=== PATIENT | female | born 1995 | race Caucasian/White ===

== ENCOUNTER 2018-11-21 12:55 | Inpatient (IN) | payer OTHER ==
[~2018-11-21] VITALS: Ht 162.6 cm; Wt 72.7 kg
[2018-11-21] MEDS ORDERED: PREN-93 PO (13:23)
[2018-11-21 13:29] VITALS: Ht 162.6 cm; Wt 72.7 kg
[2018-11-21 13:30] VITALS: BP 130/90; RESP 20
[2018-11-21] MEDS: LACTATED RINGER'S 1,000 ML IV SCH ×3 (13:59→21:59)
[2018-11-21] MEDS ORDERED: BUTORPHANOL 2 MG INJ IV PRN (14:00)
[2018-11-21] MEDS ORDERED: OXYTOCIN 30 UNITS/LR 500 ML IV PRN (14:00)
[2018-11-21] MEDS ORDERED: IBUPROFEN 600 MG TAB PO PRN (14:00)
[2018-11-21] MEDS ORDERED: CARBOPROST 250 MCG INJ IM PRN (14:00)
[2018-11-21] MEDS ORDERED: MISOPROSTOL 200 MCG TAB PR PRN (14:00)
[2018-11-21] MEDS ORDERED: AMPICILLIN 2 GM/NS (PMX) 100 ML IV ONE (14:00)
[2018-11-21] MEDS ORDERED: LIDOCAINE 1% (MPF) 30 ML INJ INJ PRN (14:00)
[2018-11-21] MEDS ORDERED: OXYTOCIN 30 UNITS/LR 500 ML IV SCH ×3 (14:00→19:00)
[2018-11-21] MEDS ORDERED: METHYLERGONOVINE 0.2 MG INJ IM PRN (14:00)
[2018-11-21] MEDS: AMPICILLIN 1 GM/NS (PMX) 50 ML IV SCH ×2 (18:22→22:03)
--- NOTE | 2018-11-21 19:54 | HP ---
Date/Time of Note Date/Time of Note DATE: 11/21/18 TIME: 19:43 OB - History Hx of Present Free Text/Dictation 23 years old 2 para 1-0-0-1 with single intrauterine at 40 weeks and 1 day complaining of uterine contractions. She states good movement. She denies nausea, vomiting, shortness of breath, chest pain, headache, visual changes, vaginal bleeding or LOF. Chief Complaint: Uterine contractions Estimated Due Date: November 20, 2018 : 2 Para: 1 Spontaneous : 0 Therapeutic : 0 Care: Good Care Ultrasounds: Normal mid trimester US Obstetrical Complications: None, Gestational Hypertension Medical Complications: None Past Family/Social History * Past Medical, Surgical, Family and Obstetric Histories reviewed from chart. Blood Type: B+ Rubella: immune RPR/VDRL: Negative GBS Status: Positive HBsAG: Negative OB Admission Exam Vital Signs Vital Signs Vital Signs Date Temp Pulse Resp B/P (MAP) Pulse Ox O2 O2 Flow FiO2 Time Delivery Rate 11/21/18 98.0 20 130/90 98 Room Air 13:30 (103) Physical Exam HEENT: WNL Heart: Rhythm Normal Lungs: Clear Abdomen: WNL Extremities: Normal Reflexes: Normal Cervical Dilatation: 2cm Effacement: 50% Station: -2 Membranes: Intact Heart Rate: 130's Accelerations: Accelerations Present Decelerations: No Decelerations Varibility: Moderate Contractions on Admission: < 5 Minutes Apart Intensity: Mild Last 72 hours Lab Results CBC & BMP 11/21/18 13:50 Liver Function Test 11/21/18 13:50 Alanine Aminotransferase (ALT/SGPT) 19 Aspartate Amino Transf (AST/SGOT) 30 OB Assessment/Plan Other plan: 23 years old 2 para 1-0-0-1 with single intrauterine at 40 weeks and 1 day in early labor. She had one elevated blood pressure during observation in triage (130/90). PIH labs performed which were within normal limits. -FHR: No sign of metabolic acidosis- Category I -Continuous EFM, toco -CBC, blood type and screen -Analgesia options with R/B/A discussed in detail with patient -Epidural per patient request -Please see the orders -B+/Rubella: Immune -GBS: Positive, ampicillin ordered Addendum: She received 2 doses of ampicillin. Repeat exam 3/60/-2/cephalic/intact. AROM performed/clear Admission, procedures, expectations, risks and possible complications have been discussed in detail with the patient. Risk of vaginal delivery including but not limited to bleeding, infection, cervical laceration, placental retention, injury to fetus, blood transfusion, blood transfusion related infection, risk of anesthesia, adhesion, cervical laceration, episiotomy/laceration, possible delivery with risk of bleeding, infection, injury to other organs (bowel, bladder, ureter, vessels, nerves), injury to fetus, blood transfusion, blood transfusion related infection, risk of anesthesia, scar and hernia formation, needs for future , removal of uterus or any other indicated surgery discussed with the patient. She expressed understanding and repeats the risks. All of her questions were answered. She signed the informed consent. PHYSICIAN'S VERIFICATION OF INFORMED CONSENT The patient was counseled regarding the procedure, its indications, risks, potential complications and alternatives and any questions were answered. Consent was obtained. PLANNED PROCEDURE/TREATMENT: Vaginal delivery, episiotomy, repair of laceration possible delivery KEMAL HILL November 21, 2018 19:54
--- NOTE | 2018-11-21 20:51 | PREAC ---
Date/Time of Note Date/Time of Note DATE: 11/21/18 TIME: 20:50 Anesthesia Eval and Record Evaluation Time Pre-Procedure Interview DATE: 11/21/18 TIME: 20:50 Age 23 Sex female NPO: 8 hrs Preoperative diagnosis labor pain Planned procedure labor epidural Past Medical History Past Medical History: None Surgery & Anesthesia Issues No known issue Meds Anticoagulation: No Beta Reginald within 24 hr: No Reason Beta Reginald not given: Pt. not on B-Reginald Reported Medications Vit No.124/Iron/FA ( Vitamin Tablet) 1 Each Tablet, 1 EACH PO DAILY, TAB 11/21/18 Current Medications Lactated Ringer's 1,000 ml @ 125 mls/hr Q8H IV Last administered on 11/21/18at 13:59; Admin Dose 125 MLS/HR; Start 11/21/18 at 13:41 Ampicillin 50 ml @ 100 mls/hr Q4H IV Last administered on 11/21/18at 18:22; Admin Dose 100 MLS/HR; Start 11/21/18 at 18:00 Butorphanol Tartrate (Stadol) 2 mg Q2H PRN IV .PAIN SCALE 6-10; Start 11/21/18 at 14:00 Lidocaine (Xylocaine 1% (Mpf)) 30 ml ONCE PRN INJ .EPISIOTOMY; Start 11/21/18 at 14:00 Oxytocin/Lactated Ringer's 500 ml @ 500 mls/hr ONCE POST IV ; Start 11/21/18 at 14:00 Oxytocin/Lactated Ringer's 500 ml @ 125 mls/hr POST IV ; Start 11/21/18 at 14:00 Ibuprofen (Motrin) 600 mg ONCE PRN PO .PAIN 1-5; Start 11/21/18 at 14:00 Oxytocin/Lactated Ringer's 500 ml @ 0 mls/hr ONCE PRN IV .VAGINAL BLEEDING; Start 11/21/18 at 14:00 Methylergonovine Maleate (Methergine) 0.2 mg ONCE PRN IM .VAGINAL BLEEDING; Start 11/21/18 at 14:00 Carboprost Tromethamine (Hemabate) 250 mcg ONCE PRN IM .VAGINAL BLEEDING; Start 11/21/18 at 14:00 Misoprostol (Cytotec) 1,000 mcg ONCE PRN NE .VAGINAL BLEEDING; Start 11/21/18 at 14:00 Oxytocin/Lactated Ringer's 500 ml @ 0 mls/hr Q0M IV Last administered on 11/21/18at 19:06; Admin Dose 1 MLS/HR; Start 11/21/18 at 19:00 Meds reviewed: Yes Allergies Coded Allergies: No Known Allergy (Unverified , 11/21/18) Allergies Reviewed: Yes Labs/Studies Labs Reviewed: Reviewed by anesthesiologist Result Diagram: 11/21/18 1350 11/21/18 1350 Laboratory Tests 11/21/18 13:50 Blood Bank Test 11/21/18 13:50 Blood Type B POSITIVE Rh Immune Globulin Candidate NO test: Positive Pre-procedure Exam Last vitals Vital Signs Date Temp Pulse Resp B/P (MAP) Pulse Ox O2 O2 Flow FiO2 Time Delivery Rate 11/21/18 98.0 20 130/90 98 Room Air 13:30 (103) Airway: Adequate mouth opening, Adequate thyromental dist Mallampati: Mallampati III Teeth: Normal Lung: Normal Heart: Normal ASA Physical Status ASA physical status: 2 Emergency: None Planned Anesthetic Neuraxial: Epidural Planned Pain Management Epidural, Parenteral pain med, Other neuraxial med Pre-operative Attestations Prior to commencing anesthesia and surgery, the patient was re-evaluated, there was verification of: *The patient's identity *The results of appropriate recent lab work and preoperative vital signs *The above evaluation not changing prior to induction *Anesthetic plan, risk benefits, alternative and complications discussed with patient/family; questions answered; patient/family understands, accepts and wishes to proceed. JACLYN TODD MD November 21, 2018 20:51
[2018-11-21] MEDS ORDERED: DIPHENHYDRAMINE 50 MG INJ IV PRN (21:00)
[2018-11-21] MEDS ORDERED: ZOLPIDEM 5 MG TAB PO PRN (21:00)
[2018-11-21] MEDS ORDERED: NALOXONE (0.4 MG/ML) INJ IV PRN (21:00)
[2018-11-21] MEDS ORDERED: ONDANSETRON 4 MG INJ IV PRN (21:00)
[2018-11-21] MEDS ORDERED: FENTAnyl 2MCG/ML-ROPIV 0.2% 100 ML BAG EPI SCH (21:00)
[2018-11-21] MEDS ORDERED: HYDROmorphONE 0.5 MG/0.5 ML SYG IV PRN ×2 (21:00)
[2018-11-21] MEDS ORDERED: KETOROLAC 30 MG INJ IV PRN (21:00)
--- NOTE | 2018-11-22 00:57 | LDN ---
Date/Time of Note Date/Time of Note DATE: 11/22/18 TIME: 00:54 Delivery Summary 23 years old 2 para 1-0-0-1 with single intrauterine at 40 weeks and 2 days delivered a viable male over intact perineum. There was nuchal cord x2 which reduced. Rest of body delivered. Cord clamp and caught after stopping pulsation. Baby given to the nurse. Placenta delivered intact and spontaneously with 3 vessel cord. Patient tolerated procedure well. Time of [id number] Weight 7 pounds 10 ounces 9 at 1 minutes and 9 at 5 minutes EBL 150 mL Weeks of Gestation 40 weeks and 2 days Placenta Delivered: Spontaneously Meconium: none Episiotomy: No Estimated blood loss: 150 Sponge & Needle done & correct: Yes All needle counts correct: Yes Any foreign bodies felt in the: No Delivery Information Sex Infant Sex: male Apgars 1 Minute: 9 5 Minute: 9 10 Minute: 10 Suctioning Nose & mouth suctioned at manuel: Yes Umbilical Cord Umbilical cord with: 3 Vessels Cord presentations: nuchal cord Nuchal cord present X: 2 Cord Blood was obtained: Yes Mother & Baby Disposition Disposition Mom & Baby to Maternity; Good: Yes KEMAL HILL November 22, 2018 00:57
[2018-11-22] MEDS: DEXTROSE 5%-LR 1,000 ML IV SCH ×2 (02:27→10:27)
[2018-11-22] MEDS ORDERED: CARBOPROST 250 MCG INJ IM PRN (02:30)
[2018-11-22] MEDS ORDERED: ZOLPIDEM 5 MG TAB PO PRN (02:30)
[2018-11-22] MEDS ORDERED: BENZOCAINE 20% 56 ML SPRAY TOP PRN (02:30)
[2018-11-22] MEDS ORDERED: DIBUCAINE 1% 30 GM OINT TOP PRN (02:30)
[2018-11-22] MEDS ORDERED: MISOPROSTOL 200 MCG TAB PR PRN (02:30)
[2018-11-22] MEDS ORDERED: OXYCODONE/ASPIRIN (4.88/325) TAB PO PRN (02:30)
[2018-11-22] MEDS ORDERED: OXYTOCIN 30 UNITS/LR 500 ML IV PRN (02:30)
[2018-11-22] MEDS ORDERED: SENNA/DOCUSATE NA (8.6MG/50MG) TAB PO PRN (02:30)
[2018-11-22] MEDS ORDERED: WITCH HAZEL/GLYCERIN PAD PR PRN (02:30)
[2018-11-22] MEDS ORDERED: DIPHENHYDRAMINE 50 MG INJ IV PRN (02:30)
[2018-11-22] MEDS ORDERED: ONDANSETRON 4 MG INJ IV PRN (02:30)
[2018-11-22] MEDS ORDERED: ACETAMINOPHEN 325 MG TAB PO PRN (02:30)
[2018-11-22] MEDS ORDERED: MAGNESIUM HYDROXIDE 30ML CUP PO PRN (02:30)
[2018-11-22] MEDS ORDERED: METHYLERGONOVINE 0.2 MG INJ IM PRN (02:30)
[2018-11-22 02:35] VITALS: BP 133/83; PULSE 80; RESP 20
[2018-11-22] MEDS: LANOLIN HPA 1 PKT TOP PRN (02:47)
[2018-11-22 04:30] VITALS: BP 126/71; PULSE 85; RESP 19
[2018-11-22] MEDS: IBUPROFEN 600 MG TAB PO SCH ×3 (05:43→17:31)
[2018-11-22 08:15] VITALS: BP 108/65; PULSE 85; RESP 19
[2018-11-22] MEDS: LACTATED RINGER'S 1,000 ML IV* SCH ×2 (08:56→10:27)
[2018-11-22 12:00] VITALS: BP 110/68; PULSE 73; RESP 19
[2018-11-22 16:00] VITALS: BP 113/56; PULSE 79; RESP 18
[2018-11-22 20:00] VITALS: BP 127/83; PULSE 80; RESP 18
[2018-11-23] MEDS: IBUPROFEN 600 MG TAB PO SCH ×5 (00:20→23:53)
[2018-11-23 00:37] VITALS: BP 120/74; PULSE 76; RESP 18
--- NOTE | 2018-11-23 02:36 | DELSUM ---
Delivery Summary A-C Datetime Report Generated by CPN: 11/23/2018 02:35 DELIVERY PERSONNEL Felt Checker: Jeannette Esqueda MATERNAL INFORMATION Delivery Anesthesia: Epidural Medications in Delivery: LR 500ML PITOCIN 30 UNITS Delivery QBL (ml): 150 Placenta Cultured: No Maternal Complications: None LABOR SUMMARY EDC: 11/20/2018 00:00 No. Babies in Womb: 1 Attempted: No Labor Anesthesia: None LABOR INFORMATION Reason for Induction: Not Applicable Onset of Labor: 11/21/2018 01:00 Complete Dilatation: 11/22/2018 00:17 Oxytocin: Augmentation Group B Beta Strep: Positive Antibiotics # of Doses: AMPICILLIN X3 Antibiotics Time of Last Dose: 11/21/2018 22:03 Steroids Given: None Reason Steroids Not Administered: Not Applicable MEMBRANES Membranes Rupture Method: Artificial Rupture of Membranes: 11/21/2018 18:45 Length of Rupture (hr): 5.87 Amniotic Fluid Color: Clear Amniotic Fluid Amount: Large Amniotic Fluid Odor: Normal STAGES OF LABOR Stage 1 hr: 23 Stage 1 min: 17 Stage 2 hr: 0 Stage 2 min: 20 Stage 3 hr: 0 Stage 3 min: 3 Total Time in Labor hr: 23 Total Time in Labor min: 40 VAGINAL DELIVERY Episiotomy: None Laceration Extension: N/A Laceration Type: None Laceration Repair: No Initial Vag Sponge Count: 10 Final Vag Sponge Count: 10 Initial Vag Sharps Count: 1 Final Vag Sharps Count: 1 Sponge Count Correct: Yes Sharps Count Correct: Yes BABY A INFORMATION Infant Delivery Date/Time: 11/22/2018 00:37 Method of Delivery: Vaginal Born in Route : No : N/A Forceps: N/A Vacuum Extraction: N/A Shoulder Dystocia : No SHOULDER DYSTOCIA BABY A Delivery Date/Time: 11/22/2018 00:37 PRESENTATION/POSITION BABY A Presentation: Cephalic Cephalic Presentation: Vertex Vertex Position: Left Occipital Posterior Breech Presentation: N/A PLACENTA INFORMATION BABY A Placenta Delivery Time : 11/22/2018 00:40 Placenta Method of Delivery: Spontaneous Placenta Status: Delivered SCORES BABY A Heart Rate 1 min: >100 bpm Resp Effort 1 min: Good Cry Reflex Irritability 1 min: Cough/Sneeze/Pulls Away Muscle Tone 1 min: Active Motion Color 1 min: Body [place], Extremit Blue Resuscitation Effort 1 min: Tactile Stimulation SCORE 1 MIN: 9 Heart Rate 5 min: >100 bpm Resp Effort 5 min: Good Cry Reflex Irritability 5 min: Cough/Sneeze/Pulls Away Muscle Tone 5 min: Active Motion Color 5 min: Body [place], Extremit Blue Resuscitation Effort 5 min: Tactile Stimulation SCORE 5 MIN: 9 INFORMATION BABY A Gestational Age at Delivery: 40.2 Gestational Status: Full Term- 39- 40.6 Weeks Infant Outcome : Liveborn Infant Condition : Stable Sex: Male IDENTIFICATION/MEDS BABY A ID Band Number: [id number] ID Band Location: Right Leg; Left Arm Sensor Applied: Yes Sensor Number: [id number] Sensor Location : Cord Clamp Vitamin K Given : Not Given Erythromycin Given: Not Given WEIGHT/LENGTH BABY A Infant Birthweight (gm): 3450 Infant Weight (lb): 7 Weight (oz): 10 Length (in): 19.50 Infant Length (cm): 49.53 CORD INFORMATION BABY A No. Cord Vessels: 3 Nuchal Cord : Around Neck x1, Loose Cord Blood Taken: Yes Infant Suction: Mouth; Nose ASSESSMENT BABY A Infant Complications: Multiple Variable Decels Physical Findings at Delivery: Within Normal Limits Infant Respirations: Appears Normal Rehab Director/ALS Called : No Care By: ROWDY ROBLEDO RN Transferred To: Nursery
--- NOTE | 2018-11-23 03:05 | PN ---
Date/Time of Note Date/Time of Note DATE: 11/23/18 TIME: 03:00 OB Subjective Subjective Subjective PPD# 1 Patient is doing well. She denies nausea, vomiting, shortness of breath, chest pain, headache. She has been ambulating without difficulty, tolerating regular diet. Pain is well controlled on current medications OB Objective Objective Objective Vital Signs Date Temp Pulse Resp B/P (MAP) Pulse Ox O2 O2 Flow FiO2 Time Delivery Rate 11/23/18 98.0 76 18 120/74 Room Air 00:37 (89) 11/21/18 98 13:30 General: AAO X 3, comfortable, NAD, appropriate mood and affect. ABD: +BS. Soft, non-tender. Uterus 2 cm below umbilicus Flank: No CVA tenderness (B/L) LE: Mild edema. No clubbing, cyanosis, thigh or calf tenderness (B/L). Homans 'sign is negative OB Assessment/Plan Other plan: 23-year old 2 para 2002 s/p normal vaginal delivery at 40 weeks and 2 days. She delivered at 00:37 on 11/22/2018. PPD#1 - AF, VSS - Baby is doing well, at bed side. She is bonding well - Contraception methods with R/B/A/FR discussed - Continue care - Discharge home, if is okay with construction ironworker helper to discharge the baby - Rx and instruction given - Follow up in 2 and 6 weeks at clinic KEMAL HILL November 23, 2018 03:05
[2018-11-23 04:30] VITALS: BP 109/69; PULSE 72; RESP 20
[2018-11-23 08:00] VITALS: BP 116/76; PULSE 63; RESP 19
[2018-11-23 16:04] VITALS: BP 111/75; PULSE 83; RESP 16
[2018-11-23] MEDS: LANOLIN HPA 1 PKT TOP PRN (18:46)
[2018-11-23 20:15] VITALS: BP 131/86; PULSE 86; RESP 19
[2018-11-24 04:30] VITALS: BP 122/66; PULSE 89; RESP 18
[2018-11-24] MEDS: IBUPROFEN 600 MG TAB PO SCH ×2 (05:43→12:05)
[2018-11-24 08:15] VITALS: BP 105/60; PULSE 66; RESP 20
[2018-11-24] MEDS ORDERED: DIPHTH/TET/ACEL PERTUSS (ADULT) 0.5 ML VIAL IM* ONE (09:00)
[2018-11-24] MEDS ORDERED: MEASLES,MUMPS,RUBELLA VACCINE INJ SC* ONE (09:00)
== END 2018-11-24 15:54 | disposition home or self-care (01) | DRG 807 ==
LOC: OBT 12:55 → L-D 12:56 → OBT 13:05 → L-D 13:05 → MS1 11-22 02:34
PROVIDERS: ADMIT Obstetrics & Gynecology; ATTEND Obstetrics & Gynecology
PROC: 10E0XZZ Delivery of Products of Conception, External Approach (ICD-10-PCS; principal; 2018-11-22)
DX: O69.81X0 Labor and delivery complicated by cord around neck, without compression, not applicable or unspecified (principal); Z37.0 Single live birth; Z3A.40 40 weeks gestation of pregnancy
CPT/HCPCS: 62322; 76815; 81001; 81003; 82565; 84450; 84460; 84560; 85025; 85610; 85730; 86592; 86900; 86901; 87340; 90715; G0463; J0290; J2590; J3010; J7120; J7121